=== PATIENT | male | born 1960 | race Hispanic/Latino ===

== ENCOUNTER 2018-08-17 13:35 | Observation (INO) | payer OTHER ==
[~2018-08-17] VITALS: Ht 185.4 cm; Wt 117.0 kg
[~2018-08-17 13:35] MED LIST: ASPI-1197 PO; CLON1TAB12 PO; METO25TA6 PO; SIMV20TA6 PO; VALS80TA30 PO
[2018-08-17] MEDS ORDERED: ASPIRIN 325 MG TABLET ONE (13:47)
[2018-08-17 13:57] LABS: APPEARANCE,URINE Clear (CLEAR); BILIRUBIN,URINE Negative (NEGATIVE); COLOR,URINE Yellow (YELLOW); GLUCOSE, URINE (UA) Negative (NEGATIVE); KETONES,URINE Negative (NEGATIVE); LEUKOCYTE ESTERASE ,URINE Negative (NEGATIVE); NITRATE,URINE Negative (NEGATIVE); OCCULT BLOOD,URINE Negative (NEGATIVE); PH,URINE 7.5 (5.0-8.0); PROTEIN,URINE Negative (NEGATIVE); UROBILINOGEN,URINE 0.2 mg/dL (0.2-1.0)
[2018-08-17] MEDS ORDERED: DICYCLOMINE HCL 10 MG/ML 2ML AMP IM ONE (14:10)
[2018-08-17] MEDS ORDERED: MAG HYDROX/AL HYDROX/SIMETH ES 30 ML SUSP UDCUP ONE (14:11)
[2018-08-17] MEDS ORDERED: LIDOCAINE HCL 2% VISCOUS 15 ML UDCUP ONE (14:11)
[2018-08-17 14:17] LABS: BASOPHILS % (AUTO) 0.6 % (0.0-5.0); HEMATOCRIT 40.7 % (42-54); LYMPHOCYTES % (AUTO) 31.3 % (21.0-51.0); MEAN CORPUSCULAR HEMOGLOBIN 31.9 pg (27.0-33.0); MONOCYTES % (AUTO) 9.5 % (3.0-13.0); NEUTROPHILS % (AUTO) 55.6 % (40.0-77.0); PLATELET COUNT (AUTO) 136 K/uL (130-400); RED BLOOD CELL COUNT(AUTO) 4.33 MIL/uL (4.50-6.20); RED CELL DISTRIBUTION WIDTH 14.7 % (11.0-15.5)
[2018-08-17 14:43] LABS: CREATININE 0.9 mg/dL (0.5-1.5); POTASSIUM 4.5 mmol/L (3.5-5.1)
[2018-08-17 14:51] LABS: BILIRUBIN,TOTAL 0.5 mg/dL (0.2-1.0); TOTAL PROTEIN, SERUM 7.6 g/dL (6.0-8.3)
[2018-08-17] MEDS ORDERED: NITROGLYCERIN 1GM/1 INCH PACKET TD ONE (15:25)
[2018-08-17] MEDS ORDERED: MORPHINE SULFATE 4 MG/1ML SYG IV PRN (18:30)
[2018-08-17] MEDS ORDERED: ACETAMINOPHEN 325 MG TAB PO PRN (18:30)
[2018-08-17] MEDS ORDERED: ONDANSETRON HCL 4 MG/2 ML VIAL IV PRN (18:30)
[2018-08-17] MEDS ORDERED: CLONAZEPAM 0.5 MG TABLET PO PRN (18:30)
[2018-08-17] MEDS ORDERED: ACETAMINOPHEN 325 MG TAB ONE (20:34)
[2018-08-17] MEDS ORDERED: ATORVASTATIN CALCIUM 40 MG TABLET PO SCH (21:00)
[2018-08-17 23:00] VITALS: BP 130/75
--- NOTE | 2018-08-17 23:03 | NUR ---
ADMISSION PT ADMITTED INTO ROOM 429, TRANSFERRED VIA WHEEL CHAIR. PT AWAKE ALERT AND RESPONSIVE, NO C/O CHEST PAIN AT THIS TIME. PT ORIENTED TO ROOM. CALL CASSIDY WITHIN REACH. Addendum: 08/17/18 at 2356 by YENI SHANNON RN Amended: Links added.
[2018-08-17] MEDS ORDERED: EZET10TA26 PO (23:23)
[2018-08-17] MEDS ORDERED: SITA1TAB6 PO (23:23)
[2018-08-17] MEDS: NITROGLYCERIN 1GM/1 INCH PACKET TD SCH (23:29)
[2018-08-17] MEDS: FAMOTIDINE/PF 20 MG/2 ML VIAL IV SCH (23:32)
[2018-08-17] MEDS: METOPROLOL TARTRATE 25 MG TAB PO SCH (23:32)
[2018-08-17] MEDS: ENOXAPARIN SODIUM 40 MG/0.4 ML SYRINGE SQ SCH (23:33)
[2018-08-18] MEDS: NITROGLYCERIN 1GM/1 INCH PACKET TD SCH ×2 (03:02→10:21)
[2018-08-18 04:00] VITALS: BP 99/50
[2018-08-18] MEDS: INSULIN HUMULIN R 100 UNIT/ML 3ML SQ SCH ×2 (05:57→11:30)
[2018-08-18 06:46] LABS: BASOPHILS % (AUTO) 0.7 % (0.0-5.0); EOSINOPHILS % (AUTO) 3.4 % (0.0-8.0); HEMATOCRIT 37.8 % (42-54); MEAN CORPUSCULAR HEMOGLOBIN 31.3 pg (27.0-33.0); MEAN CORPUSCULAR HGB CONC 33.3 g/dL (32.0-36.0); MONOCYTES % (AUTO) 10.8 % (3.0-13.0); NEUTROPHILS % (AUTO) 49.1 % (40.0-77.0); NUCLEATED RED BLOOD CELLS 0.2 % (0.0-0.19); PLATELET COUNT (AUTO) 111 K/uL (130-400); RED BLOOD CELL COUNT(AUTO) 4.02 MIL/uL (4.50-6.20); RED CELL DISTRIBUTION WIDTH 14.9 % (11.0-15.5); WHITE BLOOD COUNT (AUTO) 4.5 K/uL (4.8-10.8)
[2018-08-18 06:52] LABS: POTASSIUM 4.3 mmol/L (3.5-5.1)
[2018-08-18 07:19] LABS: B-TYPE NATRIURETIC PEPTIDE 25 pg/mL (0-100)
[2018-08-18 07:46] VITALS: BP 120/76
[2018-08-18] MEDS: FAMOTIDINE/PF 20 MG/2 ML VIAL IV SCH (08:28)
[2018-08-18] MEDS: METOPROLOL TARTRATE 25 MG TAB PO SCH (08:28)
[2018-08-18] MEDS: ENOXAPARIN SODIUM 40 MG/0.4 ML SYRINGE SQ SCH (08:28)
[2018-08-18] MEDS ORDERED: ASPIRIN 325 MG TABLET PO SCH (09:00)
[2018-08-18 11:41] VITALS: BP 112/91
[2018-08-18] MEDS ORDERED: LOSARTAN 50 MG TABLET PO SCH (12:00)
--- NOTE | 2018-08-18 12:10 | NUR ---
CARDIOLOGY DR. MAGALY CONLEY IN TO SEE PATIENT. RECOMMENDS PATIENT BE SENT HOME AND KEEP F/U APPOINTMENT WITH BLEACH RANGE OPERATOR NEXT WEEK.
[2018-08-18] MEDS ORDERED: LOSA50TA64 PO (12:17)
[2018-08-18] MEDS ORDERED: NITR0.4T SL (12:17)
--- NOTE | 2018-08-18 15:00 | NUR ---
INSTRUCTIONS DISCHARGE INSTRUCTIONS GIVEN TO PATIENT USING TEACH BACK. NEW PRESCRIPTION PLACED IN PACKET ALONG WITH ALL PRINTED INSTRUCTIONS. IV REMOVED WITH TIP INTACT. DIRECT PRESSURE APPLIED UNTIL BLEEDING WAS CONTROLLED THEN SITE WAS COVERED WITH GAUZE AND SECURED WITH A BAND-AID. PENDING RIDE HOME.
== END 2018-08-18 16:48 | disposition home or self-care (01) ==
LOC: EDH 13:35 → EDHIP 17:45 → 4AH 22:46
PROVIDERS: ADMIT Internal Medicine; ATTEND Internal Medicine
DX: I25.110 Atherosclerotic heart disease of native coronary artery with unstable angina pectoris (principal); E11.9 Type 2 diabetes mellitus without complications; I10 Essential (primary) hypertension; E78.5 Hyperlipidemia, unspecified; I35.8 Other nonrheumatic aortic valve disorders; Z79.82 Long term (current) use of aspirin; Z82.49 Family history of ischemic heart disease and other diseases of the circulatory system; F41.9 Anxiety disorder, unspecified; Z79.4 Long term (current) use of insulin
CPT/HCPCS: 36415 ×2; 71045; 80048; 80053; 81003; 82948 ×2; 83690; 83880; 84484 ×2; 85025 ×2; 93005; 96372 ×2; 96374; 96376; 99284; G0378 ×23; J0500; J1650 ×2; J3490 ×2

== ENCOUNTER 2018-12-25 23:08 | Emergency (ER) | payer OTHER ==
[~2018-12-25 23:08] MED LIST changes: +EZET10TA48 PO; +LOSA50TA64 PO; +NITR0.4T SL; +SITA1TAB6 PO; -VALS80TA30 PO
[2018-12-25] MEDS ORDERED: DIAZEPAM 5 MG TABLET ONE (23:38)
[2018-12-25] MEDS ORDERED: KETOROLAC TROMETHAMINE 30MG/ML ONE (23:38)
[2018-12-25 23:49] LABS: APPEARANCE,URINE Clear (CLEAR); BILIRUBIN,URINE Negative (NEGATIVE); COLOR,URINE Yellow (YELLOW); GLUCOSE, URINE (UA) Negative (NEGATIVE); KETONES,URINE Negative (NEGATIVE); LEUKOCYTE ESTERASE ,URINE Negative (NEGATIVE); NITRATE,URINE Negative (NEGATIVE); OCCULT BLOOD,URINE Negative (NEGATIVE); PROTEIN,URINE Negative (NEGATIVE); UROBILINOGEN,URINE 0.2 mg/dL (0.2-1.0)
[2018-12-26 00:19] LABS: BASOPHILS % (AUTO) 0.9 % (0.0-5.0); EOSINOPHILS % (AUTO) 0.8 % (0.0-8.0); HEMATOCRIT 40.9 % (42-54); LYMPHOCYTES % (AUTO) 18.1 % (21.0-51.0); MEAN CORPUSCULAR HEMOGLOBIN 31.7 pg (27.0-33.0); MEAN CORPUSCULAR HGB CONC 33.8 g/dL (32.0-36.0); MEAN CORPUSCULAR VOLUME 93.6 fL (79-99); MONOCYTES % (AUTO) 7.4 % (3.0-13.0); NEUTROPHILS % (AUTO) 72.8 % (40.0-77.0); NUCLEATED RED BLOOD CELLS 0.1 % (0.0-0.19); PLATELET COUNT (AUTO) 88 K/uL (130-400); RED BLOOD CELL COUNT(AUTO) 4.37 MIL/uL (4.50-6.20); RED CELL DISTRIBUTION WIDTH 15.1 % (11.0-15.5); WHITE BLOOD COUNT (AUTO) 7.5 K/uL (4.8-10.8)
[2018-12-26 00:28] LABS: CREATININE 1.1 mg/dL (0.5-1.5); POTASSIUM 3.8 mmol/L (3.5-5.1)
[2018-12-26 00:32] LABS: ALBUMIN 4.2 g/dL (3.5-5.0); BILIRUBIN,DIRECT 0.1 mg/dL (0.0-0.3); BILIRUBIN,TOTAL 0.5 mg/dL (0.2-1.0); TOTAL PROTEIN, SERUM 7.5 g/dL (6.0-8.3)
== END 2018-12-26 01:26 | disposition home or self-care (01) ==
LOC: EDH 23:08
DX: R10.84 Generalized abdominal pain (principal); E11.9 Type 2 diabetes mellitus without complications; I10 Essential (primary) hypertension
CPT/HCPCS: 36415; 74176; 80048; 80076; 81003; 83690; 84484; 85025; 93005; 96374; 99285; J1885

== ENCOUNTER → 2021-12-21 | Outpatient (CLI) | payer OTHER ==
[~2021-12-21] MED LIST changes: +SIMV-43 PO; -SIMV20TA6 PO
[2021-12-21 12:28] LABS: BASOPHILS % (AUTO) 0.5 % (0.0-5.0); EOSINOPHILS % (AUTO) 5.2 % (0.0-8.0); HEMATOCRIT 40.2 % (42-54); LYMPHOCYTES % (AUTO) 41.4 % (21.0-51.0); MEAN CORPUSCULAR HEMOGLOBIN 31.1 pg (27.0-33.0); MEAN CORPUSCULAR HGB CONC 32.8 g/dL (32.0-36.0); MEAN CORPUSCULAR VOLUME 94.6 fL (79-99); MONOCYTES % (AUTO) 11.7 % (3.0-13.0); NEUTROPHILS % (AUTO) 40.9 % (40.0-77.0); PLATELET COUNT (AUTO) 140 K/uL (130-400); RED BLOOD CELL COUNT(AUTO) 4.25 MIL/uL (4.50-6.20); RED CELL DISTRIBUTION WIDTH 15.2 % (11.0-15.5); WHITE BLOOD COUNT (AUTO) 3.8 K/uL (4.8-10.8)
[2021-12-21 12:42] LABS: BILIRUBIN,TOTAL 0.8 mg/dL (0.2-1.0); POTASSIUM 4.7 mmol/L (3.5-5.1); TOTAL PROTEIN, SERUM 7.7 g/dL (6.0-8.3)
== END | disposition home or self-care (01) ==
LOC: LAB 10:18
PROVIDERS: ATTEND Internal Medicine Cardiovascular Disease
DX: E78.5 Hyperlipidemia, unspecified (principal); I10 Essential (primary) hypertension; I25.10 Atherosclerotic heart disease of native coronary artery without angina pectoris
CPT/HCPCS: 36415; 80053; 80061; 85025

== ENCOUNTER 2021-12-22 19:01 | Emergency (ER) | payer OTHER ==
[~2021-12-22] VITALS: Ht 185.4 cm; Wt 113.4 kg
[2021-12-22 19:36] VITALS: BP 123/80
[2021-12-22 19:38] LABS: BASOPHILS % (AUTO) 0.7 % (0.0-5.0); EOSINOPHILS % (AUTO) 5.3 % (0.0-8.0); HEMATOCRIT 40.1 % (42-54); LYMPHOCYTES % (AUTO) 38.2 % (21.0-51.0); MEAN CORPUSCULAR HEMOGLOBIN 31.9 pg (27.0-33.0); MEAN CORPUSCULAR HGB CONC 33.4 g/dL (32.0-36.0); MEAN CORPUSCULAR VOLUME 95.5 fL (79-99); MONOCYTES % (AUTO) 10.6 % (3.0-13.0); PLATELET COUNT (AUTO) 143 K/uL (130-400); RED CELL DISTRIBUTION WIDTH 15.4 % (11.0-15.5); WHITE BLOOD COUNT (AUTO) 4.3 K/uL (4.8-10.8)
[2021-12-22 19:46] LABS: CREATININE 0.9 mg/dL (0.5-1.5); POTASSIUM 3.9 mmol/L (3.5-5.1)
[2021-12-22 19:53] LABS: BILIRUBIN,TOTAL 0.5 mg/dL (0.2-1.0); TOTAL PROTEIN, SERUM 7.9 g/dL (6.0-8.3)
[2021-12-22] MEDS ORDERED: NITROGLYCERIN 1GM OINT 1 INCH/1GM TD ONE (20:00)
[2021-12-22] MEDS ORDERED: ASPIRIN 81MG CHEW TAB PO ONE (20:00)
== END 2021-12-22 22:52 | disposition home or self-care (01) ==
LOC: EDH 19:01
DX: R07.89 Other chest pain (principal); E11.9 Type 2 diabetes mellitus without complications; I10 Essential (primary) hypertension; Z79.899 Other long term (current) drug therapy; Z79.82 Long term (current) use of aspirin; Z79.84 Long term (current) use of oral hypoglycemic drugs
CPT/HCPCS: 36415; 71045; 80053; 84484; 85025; 85378; 93005